=== PATIENT | female | born 1950 | race Caucasian/White ===

== ENCOUNTER 2018-01-25 12:39 | Emergency (ER) | payer MEDICARE ==
[2018-01-25] MEDS ORDERED: Acetaminophen TAB* 325 MG PO ONE (13:48)
--- NOTE | 2018-01-25 14:30 | UC ---
Lower Extremity/Ankle HPI - HPI Summary HPI Summary: 67 yo female twisted left ankle going to the bathroom last PM Able to lightly bear wt - History of Current Complaint Chief Complaint: UCLowerExtremity Stated Complaint: L LEG INJURY Time Seen by Provider: 01/25/18 14:21 Hx Obtained From: Patient Onset/Duration: Sudden Onset, Lasting Hours Severity Initially: Moderate Severity Currently: Moderate Pain Intensity: 5 Pain Scale Used: 0-10 Numeric Aggravating Factor(s): Standing, Ambulation Alleviating Factor(s): Rest, Elevation Able to Bear Weight: Yes - wt marked pain - Allergies/Home Medications Allergies/Adverse Reactions: Allergies Allergy/AdvReac Type Severity Reaction Status Date / Time thimerosal Allergy Swelling Verified 01/25/18 13:00 PMH/Surg Hx/FS Hx/Imm Hx Previously Healthy: Yes Endocrine History: Hypothyroidism Cardiovascular History: Hypertension - Surgical History Surgical History: Yes Surgery Procedure, Year, and Place: Cataract surgery - Family History Known Family History: Positive: Diabetes, Other - breast CA - Social History Alcohol Use: Occasionally Substance Use Type: None Smoking Status (MU): Former Smoker When Did the Patient Quit Smoking/Using Tobacco: 2014 Review of Systems Constitutional: Negative Skin: Bruising Eyes: Negative ENT: Negative Respiratory: Negative Cardiovascular: Negative Gastrointestinal: Negative Genitourinary: Negative Motor: Negative Neurovascular: Negative Musculoskeletal: Arthralgia Neurological: Negative Psychological: Negative Is Patient Immunocompromised?: No All Other Systems Reviewed And Are Negative: Yes Physical Exam Triage Information Reviewed: Yes Appearance: Well-Appearing, No Pain Distress, Well-Nourished Vital Signs: Initial Vital Signs Temp 98 F 01/25/18 12:57 Pulse 95 01/25/18 12:57 Resp 20 01/25/18 12:57 BP 144/103 01/25/18 12:57 Pulse Ox 99 01/25/18 12:57 Eyes: Positive: Conjunctiva Clear, Other: - bilat corneal transplants ENT: Positive: Hearing grossly normal. Negative: Nasal congestion, Nasal drainage, Trismus, Muffled voice, Hoarse voice Neck: Positive: Supple Respiratory: Positive: Lungs clear, Normal breath sounds, No respiratory distress, No accessory muscle use Cardiovascular: Positive: RRR, No Murmur Musculoskeletal: Positive: ROM Limited @ - left ankle, Edema @ - left LM, Other : - tender left LM, N/V intact Psychological Exam: Normal Skin Exam: Normal Diagnostics - Radiology No standard instances Xray Interpretation: Positive (See Comments) - OBLIQUE INTRA-ARTICULAR SLIGHTLY DISPLACED FRACTURE OF THE DISTAL FIBULA. Radiology Interpretation Completed By: Radiologist Lower Extremity Course/Dx - Differential Dx/Diagnosis Provider Diagnoses: oblique, slightly displaced fracture of left distal fibula. elevated. BP Discharge - Sign-Out/Discharge Documenting (check all that apply): Patient Departure All imaging exams completed and their final reports reviewed: Yes - Discharge Plan Condition: Stable Disposition: HOME Patient Education Materials: Ankle Fracture (ED), Crutch Instructions (ED) Referrals: Festus Cruz MD [Medical Doctor] - 3 Days Additional Instructions: see you MD in 2 weeks for BP recheck - Billing Disposition and Condition Condition: STABLE Disposition: Home
--- NOTE | 2018-01-25 14:48 | RAD ---
INDICATION: Left ankle injury. TECHNIQUE: 3 views of the left ankle were obtained. FINDINGS: There is anterolateral soft tissue swelling. There is an oblique intra-articular fracture of the distal fibula. The distal fragment is displaced one cortical diameter lateral and posterior relative to the proximal fragment. No additional fracture is seen. IMPRESSION: OBLIQUE INTRA-ARTICULAR SLIGHTLY DISPLACED FRACTURE OF THE DISTAL FIBULA.
[2018-01-25 15:33] VITALS: BP 134/86
== END 2018-01-25 15:25 | disposition home or self-care (01) ==
LOC: UCEAST 12:39
DX: S82.832A Other fracture of upper and lower end of left fibula, initial encounter for closed fracture (principal); X50.1XXA Overexertion from prolonged static or awkward postures, initial encounter; Y93.9 Activity, unspecified; Y92.9 Unspecified place or not applicable; Z88.8 Allergy status to other drugs, medicaments and biological substances; Z87.891 Personal history of nicotine dependence
CPT/HCPCS: 99213; A9270-GY; G0463